=== PATIENT | female | born 1965 | race Caucasian/White ===

== ENCOUNTER → 2018-01-29 | Outpatient (CLI) | payer OTHER ==
[~2018-01-29] MED LIST: HYDACE5 PO; METPRE4DP PO; RXHYDACE PO; TOBR.3OPSO OP
[2018-01-31 15:08] LABS: HPV 16 Negative (Negative); HPV 18 Negative (Negative); HPV OTHER HR TYPES Negative (Negative)
== END ==
LOC: LAB 14:59 → LAB SHORT 14:59
PROVIDERS: Obstetrics & Gynecology
DX: Z01.419 Encounter for gynecological examination (general) (routine) without abnormal findings (principal)
CPT/HCPCS: 87624; G0123

== ENCOUNTER 2019-02-21 13:10 | Emergency (ER) | payer OTHER ==
[~2019-02-21] VITALS: Ht 165.1 cm; Wt 81.7 kg
[2019-02-21 14:30] LABS: BASOPHILS ABSOLUTE AUTO 0.03 K/mm3 (0.00-0.23); BASOPHILS PERCENT AUTO 0 % (0-2); EOSINOPHILS ABSOLUTE AUTO 0.01 K/mm3 (0.00-0.68); EOSINOPHILS PERCENT AUTO 0 % (0-6); Hematocrit 42.5 % (33.0-51.0); Hemoglobin 14.8 g/dL (11.5-16.0); IMMATURE GRAN ABSOLUTE AUTO 0.06 K/mm3 (0.00-0.10); IMMATURE GRAN PERCENT AUTO 0 % (0-1); LYMPHOCYTES ABSOLUTE AUTO 1.07 K/mm3 (0.84-5.20); LYMPHOCYTES PERCENT AUTO 7 % (21-46); MONOCYTES ABSOLUTE AUTO 0.72 K/mm3 (0.16-1.47); MONOCYTES PERCENT AUTO 5 % (4-13); Mean Corpuscular HGB 30.4 pg (26.0-34.0); Mean Corpuscular HGB Conc 34.8 g/dL (31.5-36.5); Mean Corpuscular Volume 87 fL (80-100); Mean Platelet Volume 10.6 fL (9.1-12.4); NEUTROPHILS ABSOLUTE AUTO 13.58 K/mm3 (1.96-9.15); NEUTROPHILS PERCENT AUTO 88 % (41-73); Platelet Count 208 K/mm3 (150-400); RDW Coefficient Variation 11.6 % (11.7-14.2); RDW Standard Deviation 37.2 fL (35.1-46.3); Red Blood Cell Count 4.87 M/mm3 (3.80-5.20); White Blood Cell Count 15.47 K/mm3 (4.00-11.30)
[2019-02-21 15:16] LABS: Source, Urine Clean Catch
[2019-02-21 15:21] LABS: Alanine Aminotransfer (ALT/SGP 30 U/L (12-78); Albumin, Blood 4.3 g/dL (3.4-5.0); Albumin/Globulin Ratio 1.5 (0.8-1.8); Alk Phos 50 U/L (50-136); Anion Gap 8 mmol/L (6-16); Aspartate Aminotrans (AST/SGOT 19 U/L (12-37); Blood Urea Nitrogen 20 mg/dL (8-24); Bun/Creatinine Ratio 21.3 (12.0-20.0); CO2, Blood 26 mmol/L (21-32); Calcium, Blood 9.1 mg/dL (8.5-10.1); Chloride, Blood 108 mmol/L (98-108); Creatinine, Blood 0.94 mg/dL (0.40-1.00); Globulin, Blood 2.9 g/dL (2.2-4.0); Glomerular Filtration Rate >60 (60-); Glucose, Blood 133 mg/dL (70-99); Potassium, Blood 3.9 mmol/L (3.5-5.5); Sodium, Blood 142 mmol/L (136-145); Total Protein, Blood 7.2 g/dL (6.4-8.2)
[2019-02-21 15:22] LABS: Bilirubin, Urine Neg (Neg); Blood, Urine 5+ (Neg); Glucose Qualitative, Urine Neg (Neg); Ketones, Urine 1+ (Neg); Leukocyte Esterase, Urine 1+ (Neg); Nitrite, Urine Neg (Neg); Protein, Urine 2+ (Neg); Specific Gravity, Urine 1.025 (1.003-1.022); Urobilinogen, Urine NORM (Normal)
[2019-02-21 15:33] LABS: Appearance, Urine Hazy (Clear); Color, Urine Yellow (P-Yellow)
[2019-02-21 15:34] LABS: Bacteria Mod /hpf; Red Blood Cells, Urine 50-100 /hpf (0-2); Squamous Epithelial Cells Few /hpf (Few)
== END 2019-02-21 15:37 | disposition left against medical advice (07) ==
LOC: ER 13:10
PROVIDERS: Physician Assistant
DX: Z53.21 Procedure and treatment not carried out due to patient leaving prior to being seen by health care provider (principal)
CPT/HCPCS: 36415; 74176; 80053; 81001; 85025; 87086; 99284-25

== ENCOUNTER → 2019-07-26 | Outpatient (CLI) | payer OTHER | END | disposition home or self-care (01) | LOC: LAB SHORT 10:20 → LAB 10:20 | DX: M54.5 Low back pain (principal); R30.0 Dysuria | CPT/HCPCS: 87086 ==

== ENCOUNTER → 2019-10-15 | Outpatient (CLI) | payer OTHER | END | disposition home or self-care (01) | LOC: PLD 11:25 → LAB SHORT 11:25 | DX: L28.1 Prurigo nodularis (principal) | CPT/HCPCS: 88305; 88312 ==

== ENCOUNTER → 2020-01-11 | Outpatient (CLI) | payer OTHER | END | disposition home or self-care (01) | LOC: LAB 12:00 → LAB SHORT 12:00 | DX: R30.0 Dysuria (principal) | CPT/HCPCS: 87086; 87147 ==

== ENCOUNTER → 2024-03-24 | Outpatient (CLI) | payer OTHER ==
[2024-03-28 14:59] LABS: CALCIUM, URINE - PER 24H 369 mg/d (100-250); CALCIUM, URINE - PER VOLUME 12.3 mg/dL; CHLORIDE, URINE - PER 24H 207 mmol/d (140-250); CHLORIDE, URINE - PER VOLUME 69 mmol/L; CITRIC ACID, URINE - PER 24H 396 mg/d (320-1240); CITRIC ACID,URINE - PER VOLUME 132 mg/L; CREATININE, URINE - PER 24H 1590 mg/d (500-1400); CREATININE, URINE - PER VOLUME 53 mg/dL; HOURS COLLECTED 24 hr; MAGNESIUM, URINE - PER VOLUME 4.9 mg/dL; MAGNESIUM, URINE PER 24H 147 mg/d (12-199); OXALATE, URINE - PER 24H 27 mg/d (13-40); OXALATE, URINE - PER VOLUME 9 mg/L; PHOSPHORUS, URINE - PER 24H 1290 mg/d (400-1300); PHOSPHORUS, URINE - PER VOLUME 43 mg/dL; POTASSIUM, URINE - PER 24H 72 mmol/d (25-125); POTASSIUM, URINE - PER VOLUME 24 mmol/L; SODIUM, URINE - PER 24H 258 mmol/d (51-286); SODIUM, URINE - PER VOLUME 86 mmol/L; SULFATE, URINE - PER 24H 27 mmol/d (6-30); SULFATE, URINE - PER VOLUME 9 mmol/L; TOTAL VOLUME 3000 mL; URIC ACID, URINE - PER 24H 747 mg/d (250-750); URIC ACID, URINE - PER VOLUME 24.9 mg/dL; URINE SUPERSATURATION INTERP Abnormal; URINE SUPERSATURATION, CAHPO4 4.16; URINE SUPERSATURATION, CAOX 3.41; URINE SUPERSATURATION, UA CALC 0.11
== END | disposition home or self-care (01) ==
LOC: LAB SHORT 07:08 → LAB 07:08 → LAB FUT 02-27 14:40
PROVIDERS: Urology
DX: N20.0 Calculus of kidney (principal)
CPT/HCPCS: 81003; 81050; 82131; 82140; 82340; 82436; 82507; 82570; 83735; 83935; 83945; 84105; 84133; 84300; 84392; 84560

== ENCOUNTER 2025-03-06 03:00 | Observation (INO) | payer OTHER ==
[~2025-03-06] VITALS: Ht 165.1 cm; Wt 80.3 kg
[2025-03-06] VITALS (12 sets, daily range): BP systolic 112–140; BP diastolic 62–96
[2025-03-06 03:32] LABS: BASOPHILS ABSOLUTE AUTO 0.03 K/mm3 (0.00-0.23); BASOPHILS PERCENT AUTO 0 % (0-2); EOSINOPHILS ABSOLUTE AUTO 0.06 K/mm3 (0.00-0.68); EOSINOPHILS PERCENT AUTO 0 % (0-6); Hematocrit 41.7 % (33.0-51.0); Hemoglobin 14.9 g/dL (11.5-16.0); IMMATURE GRAN ABSOLUTE AUTO 0.06 K/mm3 (0.00-0.10); IMMATURE GRAN PERCENT AUTO 0 % (0-1); LYMPHOCYTES ABSOLUTE AUTO 1.63 K/mm3 (0.84-5.20); LYMPHOCYTES PERCENT AUTO 12 % (21-46); MONOCYTES ABSOLUTE AUTO 0.93 K/mm3 (0.16-1.47); MONOCYTES PERCENT AUTO 7 % (4-13); Mean Corpuscular HGB Conc 35.7 g/dL (31.5-36.5); Mean Corpuscular Volume 84 fL (80-100); NEUTROPHILS ABSOLUTE AUTO 11.49 K/mm3 (1.96-9.15); NEUTROPHILS PERCENT AUTO 81 % (41-73); NRBC ABSOLUTE 0.00 K/mm3 (0.00-0.02); NRBC Auto 0.0 /100 WBC (0.0-0.2); Platelet Count 203 K/mm3 (150-400); RDW Coefficient Variation 11.9 % (11.7-14.2); RDW Standard Deviation 36.1 fL (35.1-46.3)
[2025-03-06] MEDS ORDERED: Ondansetron HCl 2 MG / ML 2ML Vial IV ONE (03:45)
[2025-03-06] MEDS ORDERED: Morphine Sulfate 4 MG/1 ML Injection IV ONE (03:45)
[2025-03-06 03:59] LABS: Alanine Aminotransfer (ALT/SGP 32.0 U/L (12-78); Albumin, Blood 3.9 g/dL (3.4-5.0); Albumin/Globulin Ratio 1.4 (0.8-1.8); Anion Gap 7.0 mmol/L (3-11); Aspartate Aminotrans (AST/SGOT 22.0 U/L (12-37); Bilirubin, Total 1.0 mg/dL (0.1-1.0); Blood Urea Nitrogen 25.0 mg/dL (8-24); CO2, Blood 28.0 mmol/L (21-32); Calcium, Blood 8.8 mg/dL (8.5-10.1); Chloride, Blood 104.0 mmol/L (98-108); Creatinine, Blood 1.04 mg/dL (0.40-1.00); Globulin, Blood 2.8 g/dL (2.2-4.0); Glucose, Blood 190.0 mg/dL (70-99); Potassium, Blood 3.8 mmol/L (3.5-5.5); Sodium, Blood 135.0 mmol/L (136-145); Total Protein, Blood 6.7 g/dL (6.4-8.2)
[2025-03-06 04:15] LABS: Source, Urine Clean Catch
[2025-03-06 04:34] LABS: Bilirubin, Urine Neg (Neg); Glucose Qualitative, Urine Neg (Neg); Ketones, Urine Neg (Neg); Leukocyte Esterase, Urine 1+ (Neg); Protein, Urine 3+ (Neg); Specific Gravity, Urine 1.025 (1.003-1.022); Urobilinogen, Urine NORM (Normal)
[2025-03-06] MEDS ORDERED: HYDROmorphone HCl/Pf 1MG SYR IV ONE (04:50)
[2025-03-06 04:59] LABS: Color, Urine Yellow (P-Yellow)
[2025-03-06 05:00] LABS: Red Blood Cells, Urine TNTC /hpf (0-2)
[2025-03-06] MEDS ORDERED: RX Prepack 6 Tabs Oxycodone 5mg UD ONE (05:20)
[2025-03-06] MEDS ORDERED: PHENA200 PO (05:23)
[2025-03-06] MEDS ORDERED: FLU VACC TS2025-26(6MOS UP)/PF 45 MCG/0.5 ML SYRINGE IM SCH (06:30)
[2025-03-06] MEDS ORDERED: FentaNYL Citrate 50 MCG/ML 2 ML Injection IV PRN (06:30)
[2025-03-06] MEDS ORDERED: Ondansetron HCl 2 MG / ML 2ML Vial IV PRN (06:35)
[2025-03-06] MEDS ORDERED: NS 1,000 ML IV SCH (06:35)
[2025-03-06] MEDS ORDERED: CefTRIAXone Sodium 1,000 MG in NS 100 ML IV SCH (07:00)
[2025-03-06] MEDS ORDERED: Lidocaine 2% Jelly Uro-Jet ONE (07:43)
[2025-03-06] MEDS ORDERED: ALPRAZOLAM0.5 M1 PO (07:45)
[2025-03-06] MEDS ORDERED: POTASSIUM CITR10 ME2 PO (07:45)
[2025-03-06] MEDS ORDERED: TAMSULOSIN HCL0.4 M1 PO (07:45)
--- NOTE | 2025-03-06 07:54 | NUR ---
PT HAS 20G IV TO LEFT AC THAT FLUSHES WELL AND FLOWS TO GRAVITY.
--- NOTE | 2025-03-06 08:19 | NUR ---
0740: Pt brought from ER via WC to Day Surgery for procedure with urology. Upon arrival to ED, pt seen drinking water in room. Pt reports she was not aware that she was going to procedure this morning, so PO intake was not intentional. ED RN reports she did not know pt had water in room. Due to NPO status, procedure postponed per NPO guidelines and anesthesia provider Dr. Vance. History, Chart, Medications and Allergies reviewed before start of procedure. Pre-Op teaching done. Pt verbalizes understanding. Pt belongings placed underneath [email or web address] for safekeeping.
[2025-03-06] MEDS ORDERED: Ondansetron HCl 2 MG / ML 2ML Vial ONE ×2 (11:27→12:13)
[2025-03-06] MEDS ORDERED: FentaNYL Citrate 50 MCG/ML 2 ML Injection ONE (11:27)
[2025-03-06] MEDS ORDERED: Dexamethasone Sod Phos 10 MG/ML 1ML VIAL ONE ×2 (11:27→12:13)
[2025-03-06] MEDS ORDERED: FentaNYL Citrate 50 MCG/ML 2 ML Injection IV ONE (11:30)
[2025-03-06] MEDS ORDERED: Ketorolac Tromethamine 30mg Vial ONE (12:13)
[2025-03-06] MEDS ORDERED: Glycopyrrolate 0.2 MG/ML 5ML VIAL ONE (12:28)
--- NOTE | 2025-03-06 14:33 | NUR ---
Discharge instructions reviewed with patient. Patient verbalizes understanding. Copy given to patient to take home.Ambulatory in Day Surgery Patient States Post-Procedure ride home has been arranged. Discharged via wheelchair to private car for ride home.
== END 2025-03-06 07:45 | disposition other institution (70) ==
LOC: ER 03:00 → ERHOLD 03:01
PROVIDERS: Student in an Organized Health Care Education/Training Program; Urology; ADMIT Internal Medicine
PROC: 0T788DZ Dilation of Bilateral Ureters with Intraluminal Device, Via Natural or Artificial Opening Endoscopic (ICD-10-PCS; principal; 2025-03-06 12:00)
DX: N13.2 Hydronephrosis with renal and ureteral calculous obstruction (principal); N28.9 Disorder of kidney and ureter, unspecified; Z87.442 Personal history of urinary calculi
CPT/HCPCS: 80053; 81001; 83880; 85025; 87086; 96361; 96374; 96375; 99285-25; A9270; G0378; J0696; J1100; J1171; J1885; J2270; J2405; J2704; J3010; J7120

== ENCOUNTER 2025-03-17 09:38 | Day surgery (SDC) | payer OTHER ==
[~2025-03-17] VITALS: Ht 167.6 cm; Wt 78.5 kg
[~2025-03-17 09:38] MED LIST changes: +ALPRAZOLAM0.5 M1 PO; +Lidocaine 2% Jelly Uro-Jet ONE; +PHENA200 PO; +POTASSIUM CITR10 ME2 PO; +TAMSULOSIN HCL0.4 M1 PO
[2025-03-17] MEDS ORDERED: Ciprofloxacin 400MG/D5 200ML 200 ML IV ONE (09:41)
[2025-03-17] MEDS ORDERED: IBUP200 PO (10:01)
[2025-03-17] MEDS ORDERED: KETOROLAC TROME10 M2 PO (10:02)
[2025-03-17] MEDS ORDERED: PHENA200 (10:02)
[2025-03-17] MEDS ORDERED: FentaNYL Citrate 50 MCG/ML 2 ML Injection ONE ×2 (11:30→14:41)
[2025-03-17] MEDS ORDERED: Midazolam HCl 1MG / ML 2ML Vial ONE (11:31)
[2025-03-17] MEDS ORDERED: Ketorolac Tromethamine 30mg Vial ONE (14:01)
--- NOTE | 2025-03-17 14:13 | NUR ---
03/17/25 1413 Sandi Kinney REPORT RECEIVED FROM RN AND ZAMZAM. PT ASLEEP UPON ARRIVAL. VSS. IV PATENT
--- NOTE | 2025-03-17 14:29 | NUR ---
03/17/25 1429 Katie Belle [id number] MIXED 1:1 WITH NORMAL SALINE, A TOTAL OF 21ML USED.
--- NOTE | 2025-03-17 14:34 | NUR ---
03/17/25 1434 Sandi Kinney PT AMBULATORY TO BATHROOM, PT DECLINED WHEELCHAIR. PT STEADY WHEN AMBULATING
[2025-03-17 15:21] VITALS: BP 129/85
[2025-03-23 15:34] LABS: CALCULI MASS 22 mg
== END 2025-03-17 15:25 | disposition home or self-care (01) ==
LOC: ORSCSDS 09:38
PROVIDERS: Urology
PROC: 0TF48ZZ Fragmentation in Left Kidney Pelvis, Via Natural or Artificial Opening Endoscopic (ICD-10-PCS; principal; 2025-03-17 11:00)
PROC: 0TF78ZZ Fragmentation in Left Ureter, Via Natural or Artificial Opening Endoscopic (ICD-10-PCS; principal; 2025-03-17 11:00)
PROC: 0TF68ZZ Fragmentation in Right Ureter, Via Natural or Artificial Opening Endoscopic (ICD-10-PCS; principal; 2025-03-17 11:00)
PROC: 0T788DZ Dilation of Bilateral Ureters with Intraluminal Device, Via Natural or Artificial Opening Endoscopic (ICD-10-PCS; principal; 2025-03-17 11:00)
DX: N13.2 Hydronephrosis with renal and ureteral calculous obstruction (principal); Z79.899 Other long term (current) drug therapy
CPT/HCPCS: 82365; C1758; C1769; C2617; J0744; J1885; J2250; J2704; J3010; J7120